=== PATIENT | male | born 1940 | race Caucasian/White ===

== ENCOUNTER → 2021-04-18 | Outpatient (CLI) | payer MEDICARE ==
--- NOTE | 2021-04-18 12:14 | REP ---
INDICATION: LOW BACK PAIN. COMPARISON: None. TECHNIQUE: Five views FINDINGS: There is moderate posterior disc space narrowing at every level. Degenerative facet joint changes seen bilaterally at every level. There is a mild dextroconvex lumbar curve. Marginal osteophyte formation is seen bilaterally at every level. The pedicles appear to be intact bilaterally. There is no evidence of spondylolysis or spondylolisthesis. IMPRESSION: Chronic changes as described above. <Electronically signed by Compa Do > 04/18/21 [id number]
== END ==
LOC: M WUC 11:30
PROVIDERS: ATTEND Internal Medicine
DX: M51.36 Other intervertebral disc degeneration, lumbar region (principal); M25.78 Osteophyte, vertebrae